=== PATIENT | male | born 1950 | race Caucasian/White ===

== ENCOUNTER 2017-02-06 09:37 | Emergency (ER) | payer MEDICARE, OTHER ==
[~2017-02-06] VITALS: Ht 188 cm; Wt 106.5 kg
[~2017-02-06 09:37] MED LIST: CEPH-460 PO; FISHCAP4 PO; LISI-515 PO; RED600TA PO
[2017-02-06 09:42] VITALS: BP 169/86; PULSE 78; RESP 16; TEMP 97.6; O2SAT 98
[2017-02-06] MEDS ORDERED: LIDO1PAD52 TOPICAL (10:08)
[2017-02-06] MEDS ORDERED: BACL10TA PO (10:08)
--- NOTE | 2017-02-06 10:10 | PD ---
HPI Chief Complaint: Back/ Neck Pain or Injury Time Seen by Provider: 10:07 Travel History International Travel<30 days: No Contact w/Intl Traveler<30days: No Traveled to known affect area: No History of Present Illness HPI 66-year-old male here for evaluation of lower back pain. He has had intermittent lower back pain with sciatic symptoms for several years. He reports that 12 days ago he was doing work around the house, rearranging things , and later on in the day he went to bend over in order burr picker a time. Since then he has had worsening lower back pain. Pain is an aching pain to the right lower back that radiates down both thighs. He occasionally takes ibuprofen but the pain has persisted which prompted evaluation. Denies bowel or bladder incontinence, saddle anesthesia. He has no other complaints at this time. [facility] Past Medical History Cardiovascular Problems: Yes (HTN) High Cholesterol: Yes Hypertension: Yes Past Surgical History Eye Surgery: Yes (left ear middle ear) Tonsillectomy: Yes Social History Alcohol Use: Yes (socially beer) Tobacco Use: No Substance Use: No Allergies-Medications (Allergen,Severity, Reaction): Coded Allergies: No Known Allergies (Unverified Adverse Reaction, Unknown, 02/06/17) Reported Meds & Prescriptions Reported Meds & Active Scripts Active Baclofen 10 Mg Tab 10 Mg PO Q8HR 7 Days Lidocaine Patch 12 HR (Lidocaine) 5 % Patch 1 Patch TOPICAL DAILY PRN Remove patch after 12 hours Reported Red Yeast Rice (Red Yeast Rice Extract) Unknown Strength Tab Unknown Dose PO DAILY Fish Oil + D3 (Fish Oil-Cholecalciferol) Unknown Strength Cap Unknown Dose PO DAILY Lisinopril 20 Mg Tab 20 Mg PO DAILY Review of Systems Except as stated in HPI: all other systems reviewed are Neg Physical Exam Narrative GENERAL: Well-nourished male in no acute distress SKIN: Warm and dry. HEAD: Atraumatic. Normocephalic. EYES: Pupils equal and round. No scleral icterus. No injection or drainage. ENT: No nasal bleeding or discharge. Mucous membranes pink and moist. NECK: Trachea midline. No JVD. CARDIOVASCULAR: Regular rate and rhythm. No murmur appreciated. RESPIRATORY: No accessory muscle use. Clear to auscultation. Breath sounds equal bilaterally. GASTROINTESTINAL: Abdomen soft, non-tender, nondistended. Hepatic and splenic margins not palpable. MUSCULOSKELETAL: No obvious deformities. No clubbing. No cyanosis. No edema. 5 out of 5 muscle strength in lower extremities. No reproducible tenderness to palpation along the midline spine. NEUROLOGICAL: Awake and alert. No obvious cranial nerve deficits. Motor grossly within normal limits. Normal speech. Data Data Last Documented VS Vital Signs Date Time Temp Pulse Resp B/P (MAP) Pulse Ox O2 Delivery O2 Flow Rate FiO2 02/06/17 09:42 97.6 78 16 169/86 (113) 98 Orders Orders Dexamethasone Inj (Decadron Inj) (02/06/17 10:15) Ketorolac Inj (Toradol Inj) (02/06/17 10:15) Ed Discharge Order (02/06/17 10:11) [facility] Medical Decision Making Medical Screen Exam Complete: Yes Emergency Medical Condition: Yes Medical Record Reviewed: Yes Differential Diagnosis Spinal stenosis, herniated nucleus pulposus, spondylolisthesis, compression fracture, cauda equina Narrative Course Physical examination and history are consistent with lumbosacral radiculopathy. He has no red symptoms. The patient will be treated symptomatically. He is requesting a Decadron shot which she has had in the past which has helped with the symptoms. He is declining any opiate or NSAID prescription medications. He 'll be discharged with a short course of baclofen and Lidoderm patches. Diagnosis Primary Impression: Lumbosacral radiculopathy Additional Instructions: Medication as prescribed. Follow-up with primary care. Avoid strenuous activity, heavy lifting. Do not drive or drink alcohol when taking baclofen. Return for any emergent medical conditions. Med/Other Pt SpecificInfo: Prescription(s) given Scripts Baclofen (Baclofen) 10 Mg Tab 10 MG PO Q8HR for 7 Days, TAB 0 Refills Prov: Frankie Roman MD 02/06/17 Lidocaine Patch 12 HR (Lidocaine Patch 12 HR) 5 % Patch 1 PATCH TOPICAL DAILY Y for PAIN, #1 BOX 1 Refill Remove patch after 12 hours Prov: Frankie Roman MD 02/06/17 Disposition: 01 DISCHARGE HOME Condition: Stable Ruddy [place] Feb 06, 2017 10:10
[2017-02-06] MEDS ORDERED: DEXAMETHASONE SOD PHOS 4 MG/ML VIAL IM ONE (10:15)
[2017-02-06] MEDS ORDERED: KETOROLAC TROMETHAMINE 60 MG/2 ML (IM) VIAL IM ONE (10:15)
== END 2017-02-06 10:40 | disposition home or self-care (01) ==
LOC: PHEFT 09:37
DX: M54.17 Radiculopathy, lumbosacral region (principal); E78.00 Pure hypercholesterolemia, unspecified; I10 Essential (primary) hypertension
CPT/HCPCS: 96372; 99284; J1100; J1885